=== PATIENT | female | born 1950 | race Hispanic/Latino ===

== ENCOUNTER 2018-09-02 17:46 | Emergency (ER) | payer MEDICARE ==
[~2018-09-02 17:46] MED LIST: ALBU8.5H8 IH; BENZ-51 PO; FURO40TA5 PO; LACT1CAP58 PO; POTA10CA44 PO; PROP80TA4 PO; WARF4TAB72 PO
[2018-09-02] MEDS ORDERED: HYDROCODONE/ACETAMINOPHEN 10/325 MG TAB ONE (18:13)
== END 2018-09-02 21:57 | disposition home or self-care (01) ==
LOC: EDH 17:46
DX: S52.592A Other fractures of lower end of left radius, initial encounter for closed fracture (principal); S42.202A Unspecified fracture of upper end of left humerus, initial encounter for closed fracture; S60.211A Contusion of right wrist, initial encounter; M25.522 Pain in left elbow; R51 Headache; I48.91 Unspecified atrial fibrillation; Z86.73 Personal history of transient ischemic attack (TIA), and cerebral infarction without residual deficits; W18.39XA Other fall on same level, initial encounter; Y93.01 Activity, walking, marching and hiking; Y92.89 Other specified places as the place of occurrence of the external cause; Y99.8 Other external cause status
CPT/HCPCS: 29125; 70450; 73030; 73060; 73070; 73110